=== PATIENT | female | born 1985 | race Caucasian/White ===

== ENCOUNTER 2018-05-24 11:11 | Emergency (ER) | payer OTHER ==
[2018-05-24 13:09] LABS: A TYPE INFLUENZA AG NEGATIVE (NEGATIVE); B INFLUENZA AG NEGATIVE (NEGATIVE)
--- NOTE | 2018-05-24 13:30 | ER Document Report ---
HPI - HPI Time Seen by Provider: 05/24/18 12:00 Pain Level: 3 Notes: Patient is an otherwise healthy 33-year-old female who presents to the emergency department with complaints of flulike symptoms. Patient reports she has been having fevers, chills, weakness, body aches, cough and congestion that started 2 days ago. Patient reports she did not get a flu shot this year. Patient denies any chronic medical conditions and does not take any medications daily. - RESPIRATORY Respiratory: REPORTS: Coughing - REPRODUCTIVE Reproductive: DENIES: : Past Medical History - General Information source: Patient - Social History Smoking Status: Current Every Day Smoker Chew tobacco use (# tins/day): No Drug Abuse: None Family History: Reviewed & Not Pertinent Patient has suicidal ideation: No Patient has homicidal ideation: No - Medical History Medical History: Negative Renal/ Medical History: Denies: Hx Peritoneal Dialysis Surgical Hx: Negative - Immunizations Immunizations up to date: Yes History of Influenza Vaccine for 01/2017 - 06/2017 Season: No Vertical Provider Document - CONSTITUTIONAL Notes: GENERAL: Alert, interacts well. No distress. HEAD: Normocephalic, atraumatic. EYES: Pupils equal, round, and reactive to light. Extraocular movements intact. ENT: Oral mucosa moist, tongue midline. Oropharynx unremarkable, uvula normal, airway patent. Nares patent with mild nasal congestion, septum unremarkable, TMs normal, ear canals are normal. NECK: Trachea midline. No lymphadenopathy. LUNGS: Clear to auscultation bilaterally, no wheezes, rales, or rhonchi. No respiratory distress. Rare mild congested cough. HEART: Regular rate and rhythm. No murmur. Normal distal pulses and cap refill. ABDOMEN: Soft, non-tender. Non-distended. Bowel sounds present in all 4 quadrants. GENITOURINARY: Normal external genital exam, normal groin exam. EXTREMITIES: Moves all 4 extremities spontaneously. No edema. No cyanosis. BACK: no cervical, thoracic, lumbar midline tenderness. No signs of trauma. NEUROLOGICAL: Alert, interactive, age appropriate verbal. SKIN: Warm, dry, normal turgor. No rashes or lesions noted. - INFECTION CONTROL TRAVEL OUTSIDE OF THE [place] IN LAST 30 DAYS: No Course - Re-evaluation Re-evalutation: Patient's physical examination is consistent with flulike illness. Patient requesting flu testing. Flu testing was sent down to the lab and is negative. Patient given information regarding viral illness and supportive care at home. Patient verbalizes understanding of same. Patient provided with work note until Tuesday. - Vital Signs Vital signs: Temp Pulse Resp BP Pulse Ox 99.6 F 107 H 20 132/74 H 97 05/24/18 11:24 05/24/18 11:24 05/24/18 11:24 05/24/18 11:24 05/24/18 11:24 Discharge - Discharge Clinical Impression: Flu-like symptoms Fever Qualifiers: Fever type: unspecified Qualified Code(s): R50.9 - Fever, unspecified Condition: Stable Disposition: HOME, SELF-CARE Additional Instructions: Your symptoms are most likely due to a viral infection it should resolve over the next 7-14 days. You should take [id number] guanfacine per bottle instructions to help thin the mucus. For nasal congestion: I would recommend that you get [id number] oxymetazoline also known is afrin. Use only per bottle instructions and be sure to never use this for more than 3 days if you can develop severe rebound congestion. You may also use tylenol or ibuprofen as needed for aches and thorat discomfort. Please be sure to drink plenty of fluids and get rest. Return to the emergency department he began having difficulty breathing, chest pain, persistent vomiting, or any other symptoms that are concerning to you. Forms: Return to Work
[2018-05-24 13:51] VITALS: BP 118/66
== END 2018-05-24 13:49 | disposition home or self-care (01) ==
LOC: ER 11:11
DX: R50.9 Fever, unspecified (principal); R53.1 Weakness; R09.81 Nasal congestion; F17.200 Nicotine dependence, unspecified, uncomplicated
CPT/HCPCS: 87804; 99283